=== PATIENT | male | born 1995 | race African-American/Black ===

== ENCOUNTER 2020-10-28 14:55 | Emergency (ER) | payer SELFPAY ==
[2020-10-28 15:13] VITALS: BP 138/78
--- NOTE | 2020-10-28 15:20 | ER Document Report ---
ED Medical Screen (RME) - General Chief Complaint: Chest Tightness Stated Complaint: CHEST TIGHTNESS,LEFT ARM NUMBNESS Time Seen by Provider: 10/28/20 15:13 Primary Care Provider: JASON RUIZ [Primary Care Provider] - Follow up as needed Notes: Patient presents with a 3-week history of chest tightness. Patient states the pain radiates to the left arm and seem to be worse today which prompted his visit. Patient denies any cough, nausea or vomiting. Patient denies any fever. Patient does report family history of early heart disease. Patient denies any significant underlying medical problems. I have greeted and performed a rapid initial assessment of this patient. A comprehensive ED assessment and evaluation of the patient, analysis of test results and completion of the medical decision making process will be conducted by additional ED providers. Physical Exam - Vital signs Vitals: Temp Pulse Resp BP Pulse Ox 98.3 F 103 H 20 138/78 H 97 10/28/20 15:11 10/28/20 15:11 10/28/20 15:11 10/28/20 15:11 10/28/20 15:11 - General General appearance: Appears well, Alert - Respiratory Respiratory status: No respiratory distress Chest status: Tender Chest palpation: Tender - Cardiovascular Rhythm: Regular Heart sounds: S1 appreciated, S2 appreciated Course - Vital Signs Vital signs: Temp Pulse Resp BP Pulse Ox 98.3 F 103 H 20 138/78 H 97 10/28/20 15:11 10/28/20 15:11 10/28/20 15:11 10/28/20 15:11 10/28/20 15:11 Doctor's Discharge - Discharge Referrals: JASON RUIZ [Primary Care Provider] - Follow up as needed
--- NOTE | 2020-10-28 15:37 | RADIOLOGY REPORT (SQ) ---
EXAM DESCRIPTION: CHEST SINGLE VIEW IMAGES COMPLETED DATE/TIME: 10/28/2020 3:29 pm REASON FOR STUDY: cp COMPARISON: None. EXAM PARAMETERS: NUMBER OF VIEWS: One view. TECHNIQUE: Single frontal radiographic view of the chest acquired. RADIATION DOSE: NA LIMITATIONS: None. FINDINGS: LUNGS AND PLEURA: No opacities, masses or pneumothorax. No pleural effusion. MEDIASTINUM AND HILAR STRUCTURES: No masses. Contour normal. HEART AND VASCULAR STRUCTURES: Heart normal in size. Normal vasculature. BONES: No acute findings. HARDWARE: None in the chest. OTHER: No other significant finding. IMPRESSION: NO ACUTE RADIOGRAPHIC FINDING IN THE CHEST. TECHNICAL DOCUMENTATION: JOB ID: [id number] 2010 [employer]- All Rights Reserved Reading location - IP/workstation name: [email or web address]
[2020-10-28 16:08] LABS: ABSOLUTE BASOPHILS # (AUTO) 0.1 10^3/uL (0.0-0.2); ABSOLUTE EOSINOPHILS # (AUTO) 0.1 10^3/uL (0.0-0.6); ABSOLUTE LYMPHOCYTES (AUTO) 2.6 10^3/uL (0.5-4.7); ABSOLUTE MONOCYTES (AUTO) 0.4 10^3/uL (0.1-1.4); ABSOLUTE NEUT (AUTO) 5.4 10^3/uL (1.7-8.2); BASOPHILS % (AUTO) 1.2 % (0-2); EOSINOPHILS % (AUTO) 1.7 % (0-6); HEMATOCRIT 44.7 % (37.9-51.0); HEMOGLOBIN 14.8 g/dL (13.5-17.0); LYMPHOCYTES % (AUTO) 29.9 % (13-45); MEAN CORPUSCULAR HEMOGLOBIN 26.9 pg (27.0-33.4); MEAN CORPUSCULAR VOLUME 82 fl (80-97); MONOCYTES % (AUTO) 4.9 % (3-13); PLATELET COUNT 220 10^3/uL (150-450); RED BLOOD COUNT 5.48 10^6/uL (4.35-5.55); RED CELL DISTRIBUTION WIDTH 13.6 % (11.5-14.0); SEGMENTED NEUTROPHILS % (AUTO) 62.3 % (42-78); TOTAL CELLS COUNTED % (AUTO) 100 %; WHITE BLOOD COUNT 8.6 10^3/uL (4.0-10.5)
[2020-10-28 16:29] LABS: ALBUMIN 4.4 g/dL (3.5-5.0); ALKALINE PHOSPHATASE 70 U/L (38-126); ANION GAP 7 (5-19); ASPARTATE AMINO TRANSFERASE 24 U/L (17-59); BILIRUBIN,DIRECT 0.1 mg/dL (0.0-0.4); BILIRUBIN,TOTAL 1.1 mg/dL (0.2-1.3); BLOOD UREA NITROGEN 14 mg/dL (7-20); CALCIUM 10.2 mg/dL (8.4-10.2); CARBON DIOXIDE 29 mmol/L (22-30); CHLORIDE 103 mmol/L (98-107); CREATINE KINASE 134 U/L (55-170); GLUCOSE 84 mg/dL (75-110); POTASSIUM 4.5 mmol/L (3.6-5.0); TOTAL PROTEIN 7.9 g/dL (6.3-8.2)
--- NOTE | 2020-10-28 17:42 | ER Document Report ---
ED General - General Chief Complaint: Chest Tightness Stated Complaint: CHEST TIGHTNESS,LEFT ARM NUMBNESS Time Seen by Provider: 10/28/20 15:13 Primary Care Provider: JASON RUIZ [Primary Care Provider] - Follow up as needed - HPI Notes: 25-year-old male presents with chest pain. Patient states he has been having left upper chest pain occurring intermittently over the past 1 year. He states it always occurs in the same area towards his upper chest/near his armpit, it feels like a deep pain not like a superficial pain. He will occasionally feel a trickle sensation going down his left arm and along with some twitching in his left pinky finger. Patient has not identified any exacerbating factors. States that the pain will often come out of nowhere. Describes the pain as stationary. Occasionally occurs at night/when he wakes up. Patient states that he called his grandmother today and was discussing his symptoms, she urged him to come to the emergency department because there is a long family history of heart disease. He states that he does not have a primary care doctor due to insurance issues. He moved back to [place] during the pandemic, he previously lived in [place]. States that he has [place] Medicaid and currently is only able to go to the emergency department, he is in the process of switching to [place] Medicaid. He denies health problems. He states that he is a smoker but is actively trying to quit. Past Medical History - General Information source: Patient - Social History Smoking Status: Current Every Day Smoker Family History: CAD Review of Systems - Review of Systems Constitutional: No symptoms reported EENT: No symptoms reported Cardiovascular: See HPI Respiratory: denies: Short of breath Gastrointestinal: denies: Abdominal pain Genitourinary: No symptoms reported Male Genitourinary: No symptoms reported Musculoskeletal: Muscle pain Skin: No symptoms reported Hematologic/Lymphatic: No symptoms reported Neurological/Psychological: No symptoms reported Physical Exam - Vital signs Vitals: Temp Pulse Resp BP Pulse Ox 98.3 F 103 H 20 138/78 H 97 10/28/20 15:11 10/28/20 15:11 10/28/20 15:11 10/28/20 15:11 10/28/20 15:11 - General General appearance: Appears well, Alert In distress: None - HEENT Head: Normocephalic, Atraumatic Extraocular movements intact: Yes Pupils: PERRL Neck: Supple - Respiratory Chest status: Tender - Left superior lateral chest wall, near pectoral insertion Breath sounds: Normal - Cardiovascular Rhythm: Regular Heart sounds: Normal auscultation Murmur: No - Abdominal Tenderness: Nontender - Extremities General upper extremity: Normal ROM General lower extremity: Normal ROM - Neurological Neuro grossly intact: Yes Cognition: Normal Orientation: AAOx4 - Psychological Associated symptoms: Normal affect - Skin Skin Temperature: Warm Course - Re-evaluation Re-evalutation: 25-year-old male presents with left upper chest wall pain ongoing intermittently for the past 1 year, no exertional component, occurs in the same spot each time. Reportedly a family history of cardiac disease. On exam patient is alert and well-appearing, hemodynamically stable. Lungs are clear, heart RRR, he does have some tenderness to the pectoral insertion point area. EKG is without ischemic changes. A laboratory evaluation was done through triage which is unremarkable, including a negative troponin. His chest x-ray is without consolidation. I discussed with the patient that likely his symptoms today are not due to true cardiac etiology. I am suspecting more so a musculoskeletal or even nerve radiculopathy type issue. Heart score 0. I discussed with him importance of establishing with a primary care doctor, I discussed going to the [facility] for the [place] [facility], and can discuss obtaining an outpatient echo in the future. Smoking cessation was advised. Patient verbalized understanding. I encouraged him to try taking some ibuprofen when he is experiencing this pain, he is given a prescription for 800 mg ibuprofen. Return precautions given, stable at time of discharge. - Vital Signs Vital signs: Temp Pulse Resp BP Pulse Ox 98.3 F 103 H 20 138/78 H 97 10/28/20 15:11 10/28/20 15:11 10/28/20 15:11 10/28/20 15:11 10/28/20 15:11 - Laboratory Results Result Diagrams: 10/28/20 15:35 10/28/20 15:35 Laboratory Results Interpreted: 10/28/20 15:35 MCH 26.9 L Critical Laboratory Results Reviewed: No Critical Results - Radiology Results Critical Radiology Results Reviewed: No Critical Results - EKG Interpretation by Me Additional EKG results interpreted by me: EKG is interpreted by me. Sinus rhythm, rate 94. Narrow QRS, QTC within normal limits. Early repolarization. No STEMI. No ST segment depressions. Discharge - Discharge Clinical Impression: Atypical chest pain Disposition: HOME, SELF-CARE Additional Instructions: Trial using ibuprofen when you have the chest wall pain. Please establish care with a primary care provider. You have information for community cares clinic in the [facility]. Return to the emergency department for any concerning worsening symptoms. Prescriptions: Ibuprofen [Ibu] 800 mg PO Q8H PRN #60 tablet PRN Reason: Referrals: LOCALMD,NO [Primary Care Provider] - Follow up as needed [facility] [Provider Group] - Follow up as needed
--- NOTE | 2020-10-28 17:58 | EKG REPORT ---
SEVERITY:- BORDERLINE ECG - SINUS RHYTHM PROBABLE LEFT ATRIAL ABNORMALITY ST ELEV, PROBABLE NORMAL EARLY REPOL PATTERN : Confirmed by: Mauricio Cardenas MD 28-Oct-2020 17:56:50
== END 2020-10-28 18:13 | disposition home or self-care (01) ==
LOC: ER 14:55
DX: R07.89 Other chest pain (principal); R20.0 Anesthesia of skin; F17.200 Nicotine dependence, unspecified, uncomplicated
CPT/HCPCS: 36415; 71045; 80053; 82550; 84484; 85025; 93005; 93010; 99285